=== PATIENT | female | born 1985 | race African-American/Black ===

== ENCOUNTER 2019-05-27 18:52 | Emergency (ER) | payer SELFPAY | END 2019-05-27 20:05 | disposition home or self-care (01) | LOC: ERS 18:52 | DX: H66.92 Otitis media, unspecified, left ear (principal); H61.22 Impacted cerumen, left ear; Z87.891 Personal history of nicotine dependence | CPT/HCPCS: 69210 ==

== ENCOUNTER 2019-06-04 11:26 | Emergency (ER) | payer SELFPAY | END 2019-06-04 13:16 | disposition home or self-care (01) | LOC: ERS 11:26 | DX: H65.93 Unspecified nonsuppurative otitis media, bilateral (principal); Z87.891 Personal history of nicotine dependence | CPT/HCPCS: 99282 ==

== ENCOUNTER 2019-11-24 07:34 | Outpatient (CLI) | payer OTHER ==
--- NOTE | 2019-11-24 08:45 | MRI ---
MRI LUMBAR SPINE NONCONTRAST: DATE: 11/24/2019 HISTORY: 34-year-old female with low back pain M 54.5, and bilateral lower extremity paresthesia R 20.2 COMPARISON: None available FINDINGS: It will be assumed that there are 5 lumbar-type vertebrae. Vertebral body heights are maintained. The re is no central spinal canal stenosis at any level. There is minimal disc space narrowing at L4-5. No high-grade disc space narrowing at any level. There is a lateral curvature. Bone marrow signal is normal. No spondylolisthesis. Conus medullaris terminates at L1-2. No focal disc herniation that frankly compress is a nerve root. Bone marrow signal is normal. At L4-5, there is mild to moderate right neural foraminal stenosis due to mild right degenerative fac et hypertrophy and right lateral and far lateral broad-based chronic disc-osteophyte complex. Mild left neural foraminal stenosis at that level. Otherwise, the rest of the levels are normal. Incidentally, there are multiple large masses associated with the uterus. For example, there is an ap proximately 6 x 5.5 cm pedunculated fibroid protruding superiorly from the fundus. There is a 5 x 5 x 4.5 cm mass within the right side of the uterine body. There is a 5.5 x 2.5 x 3 cm mass partially e xophytically protruding from left lateral posterior cirrhosis. IMPRESSION: 1) lateral curvature. 2) mild to moderate right L4-5 neural foraminal stenosis associated with mild right facet osteoarthro sis and chronic broad-based right lateral and far lateral disc-osteophyte complex. 3) otherwise normal lumbar spine. 4) multiple large uterine leiomyomata.
--- NOTE | 2019-11-24 10:08 | RAD ---
LUMBAR SPINE 4 VIEWS: HISTORY: Low back pain. COMPARISON: Reference is made to MRI of the same day. FINDINGS: There is moderate levoscoliosis of the lumbar spine with 23 degrees measured at the anterior end plat e of T11 and the inferior end plate of L4. Enlargement of the right L5 transverse process without definite articulation with the sacrum. Right upper quadrant surgical clips. No significant listhesis. No abnormal translation with flexion or extension. IMPRESSION: 1. 23 degrees of levoscoliosis thoracolumbar spine. 2. Right I-A lumbosacral transitional vertebra of L5. POS: HOME
== END 2019-11-24 07:35 | disposition home or self-care (01) ==
LOC: BICMRI 07:34
PROVIDERS: ATTEND Surgery
DX: M54.5 Low back pain (principal); R20.2 Paresthesia of skin; M41.86 Other forms of scoliosis, lumbar region; M48.061 Spinal stenosis, lumbar region without neurogenic claudication; M47.816 Spondylosis without myelopathy or radiculopathy, lumbar region; M25.78 Osteophyte, vertebrae; D25.9 Leiomyoma of uterus, unspecified; Q76.49 Other congenital malformations of spine, not associated with scoliosis
CPT/HCPCS: 72110; 72148

== ENCOUNTER 2021-01-12 21:54 | Emergency (ER) | payer OTHER, SELFPAY ==
[2021-01-12] MEDS ORDERED: Acetaminophen 500 MG TAB ONE (23:11)
[2021-01-12] MEDS ORDERED: Ketorolac Tromethamine 30 MG/ML VIAL ONE (23:51)
[2021-01-13 00:31] LABS: BHCG - Serum Negative (NEGATIVE); Pregs Control Background? CLEAR/WHITE (CLR/WHITE); Pregs Control Bar Appear? YES (CONTROL BAR)
== END 2021-01-13 01:26 | disposition home or self-care (01) ==
LOC: ERS 21:54
DX: S30.0XXA Contusion of lower back and pelvis, initial encounter (principal); M25.552 Pain in left hip; M25.551 Pain in right hip; W19.XXXA Unspecified fall, initial encounter
CPT/HCPCS: 36415; 72220; 84703; 96372; J1885

== ENCOUNTER 2022-01-05 11:20 | Emergency (ER) | payer BC ==
[2022-01-05 14:20] LABS: Actual Bicarbonate (HCO3v) 23 mEq/L (22-28); Base Excess -1.1 mEq/L (-2.0 to +3.0); Calcium, Ionized (venous) 1.13 mmol/L (1.16-1.32); Chloride (VBG) 103 mmol/L (98-106); Sodium 139.1 mmol/L (133-146); pH (venous) 7.41 (7.32-7.43)
[2022-01-05 14:21] LABS: #Basophils 0.1 thou/uL (0.0-0.2); #Eosinphils 0.3 thou/uL (0.0-0.7); #Lymphocytes 2.7 thou/uL (1.20-3.40); #Monocytes 0.7 thou/uL (0.11-0.59); #Neutrophils 5.2 thou/uL (1.40-6.50); %Basophils 0.7 % (0.0-1.0); %Eosinophils 3.1 % (0.0-10.0); %Lymphocytes 30.2 % (21.0-51.0); %Monocytes 8.1 % (0.0-10.0); %Neutrophils 57.8 % (42.0-75.0); Hemoglobin 13.4 g/dL (12.0-16.0); Mean Corpuscular HGB CONC 32.9 g/dL (32.0-36.0); Mean Corpuscular Hemoglobin 27.6 pg (27.0-31.0); Mean Corpuscular Volume 83.9 fL (78.0-98.0); Mean Platelet Volume 7.9 fL (7.4-10.4); Platelet Count 343 thou/uL (130-400); Red Blood Cell (RBC) Count 4.87 mill/uL (4.20-5.40)
[2022-01-05 14:45] LABS: ALT (SGPT) 23 U/L (8-55); AST (SGOT) 13 U/L (5-34); Alkaline Phosphatase 89 U/L (40-110); Anion Gap 16 mmol/L (10-20); BUN (Urea Nitrogen) 15 mg/dL (7.0-18.7); Bilirubin, Total 0.3 mg/dL (0.2-1.2); CK (CPK) 70 U/L (29-168); Calc. Creatinine Clearance 0 mL/min (70-130); Calcium 9.8 mg/dL (7.8-10.44); Carbon Dioxide 22 mmol/L (22-29); Chloride 103 mmol/L (98-107); Estimated GFR 72; Globulin 3.4 g/dL (2.4-3.5); Glucose 93 mg/dL (70-105); Potassium 4.1 mmol/L (3.5-5.1); Protein, Total 7.4 g/dL (6.0-8.3); Sodium 137 mmol/L (136-145)
[2022-01-05 16:22] LABS: Acetaminophen Less than 10.0 mcg/mL (10.0-30.0); Alcohol Less than 10 mg/dL (Less than 10); Lipase 37 U/L (8-78); Salicylate Less than 8.0 mg/dL (15.0-30.0)
[2022-01-05 17:21] LABS: Bacteria/HPF None Seen HPF (None Seen); Bilirubin Negative (Negative); Blood, Urine Negative (Negative); Clarity Clear (Clear); Glucose, Urine (Dipstick) Normal (Negative); Ketone, Urine Negative (Negative); Leukocyte Negative Leu/uL (Negative); Nitrite Negative (Negative); Protein, Urine (Dipstick) Negative (Neg-Trace); RBC/HPF 0-3 HPF (0-3); Specific Gravity, Urine 1.014 (1.002-1.036); Squamous Epithelial 0-3 HPF (0-3); Urobilinogen Normal mg/dL (Less than 2); WBC/HPF 0-3 HPF (0-3)
[2022-01-05 18:03] LABS: Amphetamine Not Detected (NotDetected); Barbiturates Screen Not Detected (NotDetected); Benzodiazepine Screen Not Detected (NotDetected); Cocaine Metabolite Screen Not Detected (NotDetected); Methadone Not Detected (NotDetected); Methamphetamine Not Detected (NotDetected); Opiate Screen Not Detected (NotDetected); Oxycodone Screen Not Detected (NotDetected); Phencyclidine (PCP) Not Detected (NotDetected); THC/Cannabinoid Screen Not Detected (NotDetected); Tricyclic Screen Detected (NotDetected)
== END 2022-01-05 17:42 | disposition home or self-care (01) ==
LOC: ERS 11:20
DX: R53.83 Other fatigue (principal)
CPT/HCPCS: 36415; 36416; 71045; 80053; 80306; 80307; 81001; 82550; 82805; 83690; 84443; 84484; 85025; 93005

== ENCOUNTER 2022-02-13 15:58 | Inpatient (IN) | payer BC ==
[~2022-02-13 15:58] MED LIST: Iopamidol-370 76% 500 ML 1 ML ONE
[2022-02-13] MEDS ORDERED: Rocuronium Bromide 10 MG/ML (10ML VIAL) ONE (16:09)
[2022-02-13 16:36] LABS: #Eosinphils 0.3 thou/uL (0.0-0.7); #Lymphocytes 3.7 thou/uL (1.20-3.40); #Monocytes 0.8 thou/uL (0.11-0.59); #Neutrophils 5.2 thou/uL (1.40-6.50); %Basophils 0.3 % (0.0-1.0); %Eosinophils 2.8 % (0.0-10.0); %Lymphocytes 36.9 % (21.0-51.0); %Monocytes 7.7 % (0.0-10.0); %Neutrophils 52.3 % (42.0-75.0); Hemoglobin 12.1 g/dL (12.0-16.0); Mean Corpuscular HGB CONC 31.3 g/dL (32.0-36.0); Mean Corpuscular Hemoglobin 26.1 pg (27.0-31.0); Mean Corpuscular Volume 83.3 fL (78.0-98.0); Platelet Count 314 thou/uL (130-400); Red Blood Cell (RBC) Count 4.65 mill/uL (4.20-5.40); White Blood Cell (WBC) Count 9.9 thou/uL (4.8-10.8)
[2022-02-13 16:38] LABS: Actual Bicarbonate (HCO3a) 24.3 mEq/L (22-28); Analyzer IN Cardio ER; Base Excess (BEa) 1.4 mEq/L (-2.0 to +3.0); Calcium, Ionized (arterial) 1.15 mmol/L (1.12-1.30); Carboxyhemoglobin (COHb) 0.3 gm% (0.0-3.0); Hemoglobin (Hb) 12.7 g/dL (12.0-16.0); O2 Tension (PaO2), arterial 106.6 mmHg (80.0-100.0); Potassium - ABG Lab 3.54 mmol/L (3.70-5.30); pH, Arterial 7.49 (7.35-7.45)
[2022-02-13 16:40] LABS: Puncture Site RRA
[2022-02-13 16:47] LABS: Prothrombin Time 12.1 sec (12.0-14.7)
[2022-02-13 16:48] LABS: INR-International Normal Ratio 0.9; PTT 28.6 sec (22.9-36.1)
[2022-02-13 16:49] LABS: BHCG - Serum Negative (NEGATIVE); Pregs Control Background? CLEAR/WHITE (CLR/WHITE); Pregs Control Bar Appear? YES (CONTROL BAR)
[2022-02-13 16:55] LABS: ALT (SGPT) 22 U/L (8-55); AST (SGOT) 15 U/L (5-34); Albumin 3.6 g/dL (3.5-5.0); Alkaline Phosphatase 86 U/L (40-110); Anion Gap 13 mmol/L (10-20); BUN (Urea Nitrogen) 10 mg/dL (7.0-18.7); Bilirubin, Total 0.3 mg/dL (0.2-1.2); CK (CPK) 91 U/L (29-168); Calc. Creatinine Clearance 0 mL/min (70-130); Calcium 9.3 mg/dL (7.8-10.44); Carbon Dioxide 27 mmol/L (22-29); Chloride 102 mmol/L (98-107); Estimated GFR 86; Globulin 2.9 g/dL (2.4-3.5); Glucose 96 mg/dL (70-105); Potassium 3.8 mmol/L (3.5-5.1); Protein, Total 6.5 g/dL (6.0-8.3); Sodium 138 mmol/L (136-145)
[2022-02-13 16:56] LABS: Acetaminophen Less than 10.0 mcg/mL (10.0-30.0); Alcohol Less than 10 mg/dL (Less than 10); Salicylate Less than 8.0 mg/dL (15.0-30.0)
[2022-02-13 17:15] LABS: Bilirubin Negative (Negative); Blood, Urine Negative (Negative); Clarity Clear (Clear); Glucose, Urine (Dipstick) Normal (Negative); Ketone, Urine Negative (Negative); Leukocyte Negative Leu/uL (Negative); Nitrite Negative (Negative); Protein, Urine (Dipstick) Negative (Neg-Trace); Specific Gravity, Urine 1.032 (1.002-1.036); Urobilinogen Normal mg/dL (Less than 2); pH, Urine 6.5 (5.0-9.0)
[2022-02-13 17:22] LABS: Amphetamine Not Detected (NotDetected); Barbiturates Screen Not Detected (NotDetected); Benzodiazepine Screen Not Detected (NotDetected); Cocaine Metabolite Screen Not Detected (NotDetected); Methadone Not Detected (NotDetected); Methamphetamine Not Detected (NotDetected); Opiate Screen Not Detected (NotDetected); Oxycodone Screen Not Detected (NotDetected); Phencyclidine (PCP) Not Detected (NotDetected); THC/Cannabinoid Screen Not Detected (NotDetected); Tricyclic Screen Detected (NotDetected)
[2022-02-13] MEDS ORDERED: Fentanyl 100 MCG/2 ML VIAL ONE (17:38)
[2022-02-13 17:55] LABS: SARS-CoV-2 NAA Rapid Test Not Detected (NotDetected)
[2022-02-13] MEDS ORDERED: Fentanyl CADD 100 ML IV SCH ×2 (18:00→19:15)
[2022-02-13] MEDS ORDERED: PROPOFOL 20 ML ONE (18:39)
[2022-02-13] MEDS ORDERED: Acetaminophen 325 MG Suppository PR PRN (19:02)
[2022-02-13] MEDS ORDERED: Acetaminophen 325 MG/10.15 ML UDCUP PO PRN (19:02)
[2022-02-13] MEDS ORDERED: Electrolyte Replacement Protocol 1 EACH IVPB PRN (19:02)
[2022-02-13] MEDS ORDERED: Midazolam HCl 2 mg/2 ml Vial SLOW IVP PRN (19:12)
[2022-02-13] MEDS ORDERED: DISCONTINUE PREVIOUS NARCOTIC PAIN MEDICATIONS AND BENZODIAZEPINES FS SCH (19:15)
[2022-02-13] MEDS ORDERED: Morphine 4 MG/ML VIAL SLOW IVP PRN (19:15)
[2022-02-13] MEDS ORDERED: Propofol BOLUS 1,000 MG/100 ML VIAL IV PRN (19:15)
[2022-02-13] MEDS ORDERED: Ventilator Sedation Protocol 1 EACH FS SCH ×2 (19:15)
[2022-02-13] MEDS ORDERED: Fentanyl BOLUS 250 ML IVPB PRN (19:15)
[2022-02-13] MEDS ORDERED: levETIRAcetam 500 MG/5 ML VIAL SLOW IVP SCH (19:30)
[2022-02-13 19:36] LABS: Lactic Acid 3.1 mmol/L (0.5-2.2)
[2022-02-13] MEDS: Propofol 1,000 MG/100 ML VIAL IV PRN (21:51)
[2022-02-13] MEDS: Lactated Ringer's 1,000 ML IV SCH (23:54)
[2022-02-14 05:14] VITALS: BMI 33.8
[2022-02-14] MEDS: Propofol 1,000 MG/100 ML VIAL IV PRN (06:11)
[2022-02-14 07:19] LABS: ALV-art Gradient 96.325 mmHg (0-20); Actual Bicarbonate (HCO3a) 23.1 mEq/L (22-28); Base Excess (BEa) 0.3 mEq/L (-2.0 to +3.0); CO2 Tension 31.5 mmHg (35.0-45.0); Calcium, Ionized (arterial) 1.14 mmol/L (1.12-1.30); Carboxyhemoglobin (COHb) 0.3 gm% (0.0-3.0); Hemoglobin (Hb) 12.4 g/dL (12.0-16.0); O2 Tension (PaO2), arterial 149.5 mmHg (80.0-100.0); Potassium - ABG Lab 3.45 mmol/L (3.70-5.30); Puncture Site RRA; pH, Arterial 7.48 (7.35-7.45)
[2022-02-14 07:36] LABS: #Basophils 0.1 thou/uL (0.0-0.2); #Eosinphils 0.3 thou/uL (0.0-0.7); #Lymphocytes 2.9 thou/uL (1.20-3.40); #Monocytes 0.9 thou/uL (0.11-0.59); #Neutrophils 5.6 thou/uL (1.40-6.50); %Basophils 0.6 % (0.0-1.0); %Eosinophils 2.7 % (0.0-10.0); %Lymphocytes 29.7 % (21.0-51.0); %Monocytes 9.2 % (0.0-10.0); %Neutrophils 57.8 % (42.0-75.0); Hemoglobin 12.1 g/dL (12.0-16.0); Mean Corpuscular HGB CONC 31.1 g/dL (32.0-36.0); Mean Corpuscular Volume 83.7 fL (78.0-98.0); Mean Platelet Volume 7.9 fL (7.4-10.4); Platelet Count 305 thou/uL (130-400); RBC Distribution Width 14.2 % (11.5-14.5); Red Blood Cell (RBC) Count 4.63 mill/uL (4.20-5.40); White Blood Cell (WBC) Count 9.7 thou/uL (4.8-10.8)
[2022-02-14 07:46] LABS: ALT (SGPT) 27 U/L (8-55); AST (SGOT) 20 U/L (5-34); Albumin 3.5 g/dL (3.5-5.0); Alkaline Phosphatase 84 U/L (40-110); Anion Gap 17 mmol/L (10-20); BUN (Urea Nitrogen) 10 mg/dL (7.0-18.7); Bilirubin, Total 0.3 mg/dL (0.2-1.2); Calc. Creatinine Clearance 135 mL/min (70-130); Carbon Dioxide 17 mmol/L (22-29); Chloride 105 mmol/L (98-107); Estimated GFR 88; Glucose 94 mg/dL (70-105); Protein, Total 6.5 g/dL (6.0-8.3); Sodium 135 mmol/L (136-145)
[2022-02-14] MEDS ORDERED: FLU VACC QS2022-23(6MOS UP)/PF 60 MCG/0.5 ML SYRINGE IM ONE (09:00)
[2022-02-14] MEDS ORDERED: levETIRAcetam 500 MG/5 ML VIAL SLOW IVP SCH ×2 (09:00→11:15)
[2022-02-14] MEDS: Pantoprazole 40 MG VIAL IVP SCH (09:53)
[2022-02-14] MEDS: Enoxaparin Sodium 40 MG/0.4 ML SYRINGE SC SCH (09:54)
[2022-02-14] MEDS: Lactated Ringer's 1,000 ML IV SCH ×2 (11:37→11:47)
[2022-02-14] MEDS ORDERED: Ondansetron PF 4 MG/2 ML Vial IVP PRN (15:00)
[2022-02-14] MEDS ORDERED: Dextrose 50% Abboject 50 ML SYRINGE SLOW IVP PRN (15:18)
[2022-02-14] MEDS ORDERED: HumaLOG 300 UNITS/3 ML VIAL SC PRN ×3 (15:18→15:24)
[2022-02-14] MEDS ORDERED: Dextrose 5% in Water 1,000 ML IV PRN (15:18)
[2022-02-14] MEDS ORDERED: Insulin Regular 300 UNITS/3 ML VIAL SC PRN (15:18)
[2022-02-14] MEDS: Acetaminophen 325 MG TAB PO PRN (19:56)
[2022-02-14] MEDS: levETIRAcetam 500 MG/5 ML VIAL SLOW IVP SCH (20:19)
[2022-02-15] MEDS: Lactated Ringer's 1,000 ML IV SCH (01:01)
[2022-02-15] MEDS: Acetaminophen 325 MG TAB PO PRN ×3 (04:33→20:07)
[2022-02-15 05:09] LABS: #Eosinphils 0.2 thou/uL (0.0-0.7); #Lymphocytes 2.4 thou/uL (1.20-3.40); #Monocytes 0.7 thou/uL (0.11-0.59); #Neutrophils 5.6 thou/uL (1.40-6.50); %Basophils 0.3 % (0.0-1.0); %Eosinophils 2.2 % (0.0-10.0); %Lymphocytes 27.1 % (21.0-51.0); %Monocytes 7.3 % (0.0-10.0); %Neutrophils 63.1 % (42.0-75.0); Mean Corpuscular HGB CONC 31.8 g/dL (32.0-36.0); Mean Corpuscular Hemoglobin 26.7 pg (27.0-31.0); Mean Platelet Volume 8.1 fL (7.4-10.4); Platelet Count 288 thou/uL (130-400); Red Blood Cell (RBC) Count 4.13 mill/uL (4.20-5.40); White Blood Cell (WBC) Count 8.9 thou/uL (4.8-10.8)
[2022-02-15 05:35] LABS: ALT (SGPT) 34 U/L (8-55); AST (SGOT) 21 U/L (5-34); Albumin 3.3 g/dL (3.5-5.0); Alkaline Phosphatase 82 U/L (40-110); Anion Gap 12 mmol/L (10-20); BUN (Urea Nitrogen) 7 mg/dL (7.0-18.7); Bilirubin, Total 0.4 mg/dL (0.2-1.2); Calc. Creatinine Clearance 130 mL/min (70-130); Calcium 8.4 mg/dL (7.8-10.44); Carbon Dioxide 25 mmol/L (22-29); Chloride 104 mmol/L (98-107); Estimated GFR 84; Globulin 2.9 g/dL (2.4-3.5); Glucose 103 mg/dL (70-105); Potassium 3.5 mmol/L (3.5-5.1); Protein, Total 6.2 g/dL (6.0-8.3); Sodium 137 mmol/L (136-145)
[2022-02-15] MEDS ORDERED: Potassium Chloride 20 MEQ TAB PO SCH (08:00)
[2022-02-15] MEDS: levETIRAcetam 500 MG/5 ML VIAL SLOW IVP SCH ×2 (09:53→20:09)
[2022-02-15] MEDS: Enoxaparin Sodium 40 MG/0.4 ML SYRINGE SC SCH (09:53)
[2022-02-15] MEDS: Pantoprazole 40 MG VIAL IVP SCH (09:53)
[2022-02-15] MEDS ORDERED: Lorazepam 2 MG/ML VIAL ONE (14:48)
[2022-02-16 05:46] LABS: #Basophils 0.1 thou/uL (0.0-0.2); #Eosinphils 0.2 thou/uL (0.0-0.7); #Monocytes 0.6 thou/uL (0.11-0.59); #Neutrophils 4.7 thou/uL (1.40-6.50); %Basophils 0.7 % (0.0-1.0); %Eosinophils 2.6 % (0.0-10.0); %Lymphocytes 26.8 % (21.0-51.0); %Monocytes 7.9 % (0.0-10.0); Hemoglobin 10.9 g/dL (12.0-16.0); Mean Corpuscular Volume 84.3 fL (78.0-98.0); Mean Platelet Volume 7.8 fL (7.4-10.4); Platelet Count 299 thou/uL (130-400); RBC Distribution Width 13.8 % (11.5-14.5); Red Blood Cell (RBC) Count 4.04 mill/uL (4.20-5.40); White Blood Cell (WBC) Count 7.5 thou/uL (4.8-10.8)
[2022-02-16 06:03] LABS: ALT (SGPT) 38 U/L (8-55); AST (SGOT) 22 U/L (5-34); Albumin 3.4 g/dL (3.5-5.0); Alkaline Phosphatase 83 U/L (40-110); Anion Gap 9 mmol/L (10-20); BUN (Urea Nitrogen) 7 mg/dL (7.0-18.7); Bilirubin, Total 0.3 mg/dL (0.2-1.2); Calc. Creatinine Clearance 150 mL/min (70-130); Calcium 8.6 mg/dL (7.8-10.44); Carbon Dioxide 24 mmol/L (22-29); Chloride 107 mmol/L (98-107); Estimated GFR 93; Globulin 2.8 g/dL (2.4-3.5); Glucose 108 mg/dL (70-105); Potassium 3.9 mmol/L (3.5-5.1); Protein, Total 6.2 g/dL (6.0-8.3); Sodium 136 mmol/L (136-145)
[2022-02-16] MEDS: levETIRAcetam 500 MG/5 ML VIAL SLOW IVP SCH ×2 (09:13→20:19)
[2022-02-16] MEDS: Pantoprazole 40 MG VIAL IVP SCH (09:13)
[2022-02-16] MEDS: Enoxaparin Sodium 40 MG/0.4 ML SYRINGE SC SCH (09:14)
[2022-02-16] MEDS ORDERED: Lorazepam 1 MG TAB PO SCH (10:30)
[2022-02-16] MEDS: Acetaminophen 325 MG TAB PO PRN ×2 (11:42→20:18)
[2022-02-16] MEDS ORDERED: Lorazepam 2 MG/ML VIAL SLOW IVP SCH (12:45)
[2022-02-16] MEDS ORDERED: Ibuprofen 800 MG TAB PO SCH (13:00)
[2022-02-16] MEDS: Cyclobenzaprine 10 MG TAB PO PRN (13:05)
[2022-02-16] MEDS ORDERED: Lorazepam 2 MG/ML VIAL SLOW IVP PRN (20:18)
[2022-02-16] MEDS ORDERED: hydrOXYzine 25 MG TAB PO PRN (20:27)
[2022-02-17] MEDS: Cyclobenzaprine 10 MG TAB PO PRN (00:12)
[2022-02-17] MEDS ORDERED: Ibuprofen 800 MG TAB PO PRN (00:36)
[2022-02-17] MEDS: Acetaminophen 325 MG TAB PO PRN (02:17)
[2022-02-17 07:00] LABS: #Eosinphils 0.2 thou/uL (0.0-0.7); #Lymphocytes 1.8 thou/uL (1.20-3.40); #Monocytes 0.5 thou/uL (0.11-0.59); #Neutrophils 4.1 thou/uL (1.40-6.50); %Basophils 0.2 % (0.0-1.0); %Eosinophils 3.6 % (0.0-10.0); %Lymphocytes 27.6 % (21.0-51.0); %Monocytes 7.6 % (0.0-10.0); Hemoglobin 11.4 g/dL (12.0-16.0); Mean Corpuscular HGB CONC 30.7 g/dL (32.0-36.0); Mean Corpuscular Hemoglobin 25.9 pg (27.0-31.0); Mean Corpuscular Volume 84.4 fL (78.0-98.0); Platelet Count 339 thou/uL (130-400); Red Blood Cell (RBC) Count 4.39 mill/uL (4.20-5.40); White Blood Cell (WBC) Count 6.6 thou/uL (4.8-10.8)
[2022-02-17 07:09] LABS: Anion Gap 12 mmol/L (10-20); BUN (Urea Nitrogen) 9 mg/dL (7.0-18.7); Calc. Creatinine Clearance 137 mL/min (70-130); Calcium 8.7 mg/dL (7.8-10.44); Carbon Dioxide 23 mmol/L (22-29); Chloride 108 mmol/L (98-107); Estimated GFR 83; Glucose 107 mg/dL (70-105); Potassium 3.9 mmol/L (3.5-5.1); Sodium 139 mmol/L (136-145)
[2022-02-17 08:20] VITALS: BP 127/90; TEMP 97.5
[2022-02-17] MEDS: Enoxaparin Sodium 40 MG/0.4 ML SYRINGE SC SCH (09:01)
[2022-02-17] MEDS: Pantoprazole 40 MG VIAL IVP SCH (09:01)
[2022-02-17] MEDS: levETIRAcetam 500 MG/5 ML VIAL SLOW IVP SCH (09:01)
== END 2022-02-17 10:32 | disposition short-term general hospital (02) | DRG 880 ==
LOC: ERS 15:58 → CCU 16:20 → NEURO 02-14 17:18
PROVIDERS: ADMIT Family Medicine; ATTEND Emergency Medicine
PROC: 5A1935Z Respiratory Ventilation, Less than 24 Consecutive Hours (ICD-10-PCS; principal; 2022-02-13)
PROC: 0BH17EZ Insertion of Endotracheal Airway into Trachea, Via Natural or Artificial Opening (ICD-10-PCS; 2022-02-13)
PROC: 0D9670Z Drainage of Stomach with Drainage Device, Via Natural or Artificial Opening (ICD-10-PCS; 2022-02-13)
DX: F44.5 Conversion disorder with seizures or convulsions (principal); J96.00 Acute respiratory failure, unspecified whether with hypoxia or hypercapnia; G93.41 Metabolic encephalopathy; E87.20 Acidosis, unspecified; Z20.822 Contact with and (suspected) exposure to COVID-19; G93.89 Other specified disorders of brain; I10 Essential (primary) hypertension; E11.9 Type 2 diabetes mellitus without complications; M54.9 Dorsalgia, unspecified; G89.29 Other chronic pain; E66.9 Obesity, unspecified; Z79.84 Long term (current) use of oral hypoglycemic drugs; Z79.899 Other long term (current) drug therapy; Z98.890 Other specified postprocedural states; Z90.49 Acquired absence of other specified parts of digestive tract; Z78.1 Physical restraint status; Z68.36 Body mass index [BMI] 36.0-36.9, adult
CPT/HCPCS: 31500; 36415; 36416; 36600; 70450; 70496; 70498; 71045; 80048; 80053; 80177; 80306; 80307; 81003; 82550; 82805; 83605; 84146; 84443; 84484; 84703; 85025; 85610; 85730; 87040; 87086; 93005; 94002; 94003; 95712; 95819; 95957; 96361; 96365; 96374; C9113; J1650; J1953; J2060; J2704; J3010; J7120; Q9967

== ENCOUNTER 2022-04-03 13:25 | Emergency (ER) | payer BC ==
[2022-04-03 14:16] LABS: #Basophils 0.1 thou/uL (0.0-0.2); #Eosinphils 0.1 thou/uL (0.0-0.7); #Monocytes 0.6 thou/uL (0.11-0.59); #Neutrophils 4.2 thou/uL (1.40-6.50); %Basophils 0.8 % (0.0-1.0); %Eosinophils 1.8 % (0.0-10.0); %Monocytes 7.3 % (0.0-10.0); %Neutrophils 53.1 % (42.0-75.0); Hemoglobin 13.2 g/dL (12.0-16.0); Mean Corpuscular HGB CONC 31.3 g/dL (32.0-36.0); Mean Corpuscular Volume 83.2 fl (78.0-98.0); Mean Platelet Volume 8.5 fL (7.4-10.4); Platelet Count 399 10x3/uL (130-400); RBC Distribution Width 13.7 % (11.5-14.5); Red Blood Cell (RBC) Count 5.05 mill/uL (4.20-5.40)
[2022-04-03 14:21] LABS: BHCG - Serum Negative (NEGATIVE); Pregs Control Background? CLEAR/WHITE (CLR/WHITE); Pregs Control Bar Appear? YES (CONTROL BAR)
[2022-04-03 14:31] LABS: Albumin 4.4 g/dL (3.5-5.0); Anion Gap 15 mmol/L (10-20); BUN (Urea Nitrogen) 13 mg/dL (7.0-18.7); Bilirubin, Total 0.4 mg/dL (0.2-1.2); Calc. Creatinine Clearance 0 mL/min (70-130); Calcium 9.8 mg/dL (7.8-10.44); Carbon Dioxide 25 mmol/L (22-29); Chloride 100 mmol/L (98-107); Estimated GFR 80; Globulin 3.6 g/dL (2.4-3.5); Glucose 111 mg/dL (70-105); Potassium 2.8 mmol/L (3.5-5.1); Sodium 137 mmol/L (136-145)
[2022-04-03 14:32] LABS: ALT (SGPT) 25 U/L (8-55); AST (SGOT) 15 U/L (5-34); Alkaline Phosphatase 92 U/L (40-110)
[2022-04-03 17:45] LABS: Bacteria/HPF None Seen HPF (None Seen); Bilirubin Negative (Negative); Blood, Urine Negative (Negative); Clarity Clear (Clear); Glucose, Urine (Dipstick) Normal (Negative); Ketone, Urine Negative (Negative); Leukocyte 25 Leu/uL (Negative); Nitrite Negative (Negative); Protein, Urine (Dipstick) Negative (Neg-Trace); RBC/HPF 0-3 HPF (0-3); Urobilinogen Normal mg/dL (Less than 2); WBC/HPF 0-3 HPF (0-3)
== END 2022-04-03 17:46 | disposition home or self-care (01) ==
LOC: ERS 13:25
DX: J35.1 Hypertrophy of tonsils (principal); J35.2 Hypertrophy of adenoids; M48.00 Spinal stenosis, site unspecified; M48.8X9 Other specified spondylopathies, site unspecified
CPT/HCPCS: 36415; 70491; 80053; 81003; 81015; 84703; 85025

== ENCOUNTER 2022-05-30 10:12 | Outpatient (CLI) | payer OTHER, BC | END 2022-05-30 10:13 | disposition home or self-care (01) | LOC: BICRAD 10:12 | PROVIDERS: ATTEND Physician Assistant | DX: M48.02 Spinal stenosis, cervical region (principal); M47.814 Spondylosis without myelopathy or radiculopathy, thoracic region; M25.78 Osteophyte, vertebrae; M53.84 Other specified dorsopathies, thoracic region | CPT/HCPCS: 72040 ==

== ENCOUNTER 2022-07-17 09:26 | Outpatient (CLI) | payer BC | END 2022-07-17 09:27 | disposition home or self-care (01) | LOC: MRI 09:26 | PROVIDERS: ATTEND Surgery | DX: M48.02 Spinal stenosis, cervical region (principal); M50.21 Other cervical disc displacement, high cervical region | CPT/HCPCS: 72141 ==

== ENCOUNTER 2022-07-22 09:30 | Outpatient (CLI) | payer BC | END 2022-07-22 09:31 | disposition home or self-care (01) | LOC: LABBT 09:30 | PROVIDERS: ATTEND Otolaryngology Plastic Surgery within the Head & Neck | DX: Z01.818 Encounter for other preprocedural examination (principal); J35.3 Hypertrophy of tonsils with hypertrophy of adenoids; G47.33 Obstructive sleep apnea (adult) (pediatric); J35.01 Chronic tonsillitis; J34.89 Other specified disorders of nose and nasal sinuses; J33.0 Polyp of nasal cavity | CPT/HCPCS: 85014; 93005; 93010 ==

== ENCOUNTER 2022-10-23 10:33 | Outpatient (CLI) | payer BC | END 2022-10-23 10:34 | disposition home or self-care (01) | LOC: BICRAD 10:33 | PROVIDERS: ATTEND Nurse Practitioner Family | DX: R05.1 Acute cough (principal); R07.89 Other chest pain | CPT/HCPCS: 71046 ==

== ENCOUNTER 2024-03-09 13:19 | Outpatient (CLI) | payer BC | END 2024-03-09 13:20 | disposition home or self-care (01) | LOC: BICULT 13:19 | PROVIDERS: ATTEND Student in an Organized Health Care Education/Training Program | DX: R10.9 Unspecified abdominal pain (principal) | CPT/HCPCS: 76856; 93976 ==

== ENCOUNTER 2024-03-26 12:25 | Outpatient (CLI) | payer BC ==
[2024-03-26] MEDS ORDERED: Magnevist 469MG/ML 20 ML VIAL ONE (12:38)
== END 2024-03-26 12:26 | disposition home or self-care (01) ==
LOC: MRI 12:25
PROVIDERS: ATTEND Student in an Organized Health Care Education/Training Program
DX: E22.1 Hyperprolactinemia (principal)
CPT/HCPCS: 70553; 76376

== ENCOUNTER 2024-04-16 08:34 | Outpatient (CLI) | payer BC | END 2024-04-16 08:35 | disposition home or self-care (01) | LOC: MRI 08:34 | PROVIDERS: ATTEND Student in an Organized Health Care Education/Training Program | DX: D25.9 Leiomyoma of uterus, unspecified (principal) | CPT/HCPCS: 72197 ==